=== PATIENT | female | born 1970 | race Caucasian/White ===

== ENCOUNTER 2023-06-06 10:42 | Outpatient (CLI) | payer OTHER | END 2023-06-06 10:45 | disposition home or self-care (01) | LOC: SONOGRAMA 10:42 | PROVIDERS: ATTEND Pathology Anatomic Pathology & Clinical Pathology | DX: D44.0 Neoplasm of uncertain behavior of thyroid gland (principal); E04.1 Nontoxic single thyroid nodule ==